=== PATIENT | female | born 2005 | race Caucasian/White ===

== ENCOUNTER 2025-01-29 19:12 | Emergency (ER) | payer MEDICAID ==
[~2025-01-29] VITALS: Ht 162.6 cm; Wt 95.5 kg
[2025-01-29 19:15] VITALS: TEMP 98.6
--- NOTE | 2025-01-29 20:06 | Physician Documentation ---
History of Present Illness ~ General Chief Complaint: General Stated Complaint: LUPUS FLARE UP Time Seen by MD: 20:05 Mode of Arrival: EMS History of Present Illness Initial Comments 19-year-old female with reported history of lupus who presents with a lupus flare and body aches She tells me that she has a history of lupus and sometimes has flares. She has been feeling ill over the past 1 week. She went to [facility], and was given an injection of steroids and Toradol. She then says that she got an infection at the injection site on her arm. She was started on Keflex and has been taking that and says that the arm looks better. Over, she states that overall she is doing worse. She reports having fevers and body aches. She reports congestion and a productive cough with yellow sputum. She feels short of breath and feels like her chest is rapidly. She reports pain in her right low back. She reports general fatigue. She tells me that in the past the only thing that seems to help or steroids. She is very sensitive to medications. Medication Reconciliation Allergies: Coded Allergies: Penicillins (Verified Allergy, Unknown, 06/24/24) >5 years, hives, unknown latex (Verified Allergy, Unknown, anaphylaxis, 06/24/24) Review of Systems Constitutional: Reports: fever, weakness ENT: Reports: throat pain Respiratory: Reports: cough, shortness of breath Physical Exam Physical Exam Vital Signs: Temperature: 98.6, Source: Oral, Heart Rate: 124, Respiratory Rate: 20, BP: 126/83, Pulse Oximetry: 99, Weight: 95.450 Physical Exam General: This is an anxious young female, appears in mild distress HEENT: Atraumatic, oropharynx appears dry Heart: Tachycardic, appears regular, normal-appearing peripheral perfusion Lungs: Clear breath sounds bilateral, no wheezing or consolidation, normal work of breathing, normal oxygen saturation on room air, occasional cough with yellow sputum Abdomen: Soft, nondistended, nontender all quadrants Back: Tender to palpation of the bilateral lower back muscles, right worse than left Neuro: Alert and oriented Psychiatric: Anxious, tearful, labile affect Progress Results/Orders Results/Orders Orders - CARTER RODRIGUEZ MD Covid19 Binax Poc Result Entry (01/29/25 20:18) Chest,Two Views (01/29/25 20:18) Completed Orders - CARTER RODRIGUEZ MD Cbc/Diff (01/29/25 20:18) CMP (01/29/25 20:18) Chest,Two Views (01/29/25 20:18) Normal Saline 1000ml (0.9% Sodium Chlori (01/29/25 20:20) Ketorolac Trometh 15mg/Ml Vial (Toradol (01/29/25 20:20) Dexamethasone Inj (Decadron 10mg/Ml Inj) (01/29/25 20:18) Ondansetron Inj. (Zofran 4mg/2ml Vial) (01/29/25 20:20) Medications Received in ER Medications (Trade) Dose Ordered Sig/Shyam Route PRN Reason Start Time Stop Time Status Last Admin Dose Admin Sodium Chloride 1,000 ml @ 1,000 mls/hr ONCE ONCE IV 01/29/25 20:20 01/29/25 21:19 DC 01/29/25 20:33 1,000 MLS/HR (Toradol injection) 15 mg ONCE ONCE IV 01/29/25 20:20 01/29/25 20:21 DC 01/29/25 20:33 15 MG (Decadron 10mg/ ml inj) 10 mg ONCE STAT IV 01/29/25 20:18 01/29/25 20:20 DC 01/29/25 20:32 10 MG (Zofran 4mg/2ml vial) 4 mg ONCE ONCE IV 01/29/25 20:20 01/29/25 20:21 DC 01/29/25 20:32 4 MG Vital Signs 01/29/25 01/29/25 01/29/25 01/29/25 19:15 19:22 20:33 22:33 Temp 98.6 Pulse 124 101 Resp 20 20 18 16 B/P (MAP) 126/83 122/59 (80) Pulse Ox 99 95 01/29/25 01/29/25 23:22 23:22 Pulse 113 Resp 18 B/P (MAP) 122/59 Pulse Ox 99 Laboratory Tests Test 01/29/25 21:03 01/29/25 21:32 White Blood Count 15.4 H Red Blood Count 5.00 Hemoglobin 16.1 H Hematocrit 46.9 H Mean Corpuscular Volume 93.8 Mean Corpuscular Hemoglobin 32.2 H Mean Corpuscular Hemoglobin Concent 34.4 Red Cell Distribution Width 12.9 Platelet Count 306 Mean Platelet Volume 8.6 Neutrophils (%) (Auto) 68.1 Lymphocytes (%) (Auto) 15.7 L Monocytes (%) (Auto) 14.3 H Eosinophils (%) (Auto) 1.7 Basophils (%) (Auto) 0.2 Neutrophils # (Auto) 10.5 H Lymphocytes # (Auto) 2.4 Monocytes # (Auto) 2.2 H Eosinophils # (Auto) 0.3 Basophils # (Auto) 0.0 CBC Comment Sodium Level 138 Potassium Level 3.9 Chloride Level 103 Carbon Dioxide Level 24.4 Anion Gap 11 Blood Urea Nitrogen 7 Creatinine 0.74 Estimated GFR/1.73 m2 > 90 BUN/Creatinine Ratio 9.5 L Glucose Level 92 Calcium Level 8.7 Total Bilirubin 0.4 Aspartate Amino Transf (AST/SGOT) 20 Alanine Aminotransferase (ALT/SGPT) 26 Alkaline Phosphatase 108 Total Protein 8.1 Albumin 3.6 Globulin 4.5 H Albumin/Globulin Ratio 0.8 L Chemistry Comments SARS-CoV-2 Antigen (Rapid) Negative EKG/XRAY/CT/US/VASC/MRI Chest X-Ray : Additional Comments I personally interpreted the x-ray, and it shows: No focal consolidation, pulmonary edema, or pneumothorax Medical Decision Making Additional information obtaine: old records Findings Reviewed past records in the chart, there was no significant information Differential Diagnosis Viral syndrome, bronchitis, COVID-19, pneumonia, dehydration, electrolyte derangement, lupus flare Assessment The patient presents with a constellation of symptoms that seem most consistent with a viral syndrome. She also reports a history of lupus in says that steroids generally help. She was given symptomatic treatment including IV fluids for hydration. Her workup is otherwise unremarkable. COVID swab negative. Chest x-ray without pneumonia. No dangerous dehydration or electrolyte derangement. On re-evaluation she did appear improved. Overall, this appears consistent with a viral syndrome. I doubt sepsis or other more dangerous process. She will be discharged home with ongoing outpatient management and symptomatic treatment. Departure Time of Disposition: 22:44 Disposition: HOME / SELF CARE / HOMELESS Impression: Primary Impression: Viral URI with cough Condition: Improved Referrals: NO PRIMARY CARE PROVIDER (PCP) Education Educated: Patient Educated regarding: diagnosis, treatment, need for follow up Signature Scribe Signature: jenni Attestation: CARTER Good MD Jan 29, 2025 20:06
[2025-01-29] MEDS: dexamethasone sod phosphate 10mg/ml inj IV STA (20:32)
[2025-01-29] MEDS: ondansetron/PF 4mg/2ml inj IV ONE (20:32)
[2025-01-29] MEDS: normal saline 1000ml 1,000 ML IV ONE (20:33)
[2025-01-29] MEDS: ketorolac trometh 15mg/ml vial 15 MG/ML ML IV ONE (20:33)
--- NOTE | 2025-01-29 20:53 | RADIOLOGY REPORT ---
DI CHEST,TWO VIEWS CLINICAL HISTORY: cough, chest pain COMPARISON: None TECHNIQUE: Frontal and lateral view of the chest was obtained FINDINGS: Lines and Tubes: None Lungs: No focal consolidation. Pleura: No effusion. No pneumothorax. Cardiomediastinal contours: Unremarkable Bones: No acute osseous abnormality. IMPRESSION: No acute cardiopulmonary disease.
[2025-01-29 21:35] LABS: MEAN PLATELET VOLUME 8.6 FL (7.4-10.4); RED CELL DISTRIBUTION WIDTH 12.9 % (11.5-14.5)
[2025-01-29 21:44] LABS: CREATININE 0.74 MG/DL (0.40-0.90); TOTAL CARBON DIOXIDE 24.4 MMOL/L (24-32); eCRCL 105 ML/MIN; eGFR > 90 ML/MIN
[2025-01-29 23:22] VITALS: BP 122/59; PULSE 113; RESP 18; O2SAT 99
== END 2025-01-29 23:50 | disposition home or self-care (01) ==
LOC: ER 19:13
DX: J06.9 Acute upper respiratory infection, unspecified (principal); B97.89 Other viral agents as the cause of diseases classified elsewhere; Z88.0 Allergy status to penicillin; Z91.040 Latex allergy status; Z20.822 Contact with and (suspected) exposure to COVID-19
CPT/HCPCS: 36415; 71046; 80053; 85025; 87811; 96361; 96374; 96375; 99284; J1100; J1885; J2405; J7030

== ENCOUNTER 2025-02-05 18:38 | Emergency (ER) | payer MEDICAID ==
[~2025-02-05] VITALS: Ht 162.6 cm; Wt 108.0 kg
[2025-02-05 18:41] VITALS: BP 169/91; PULSE 98; RESP 17; O2SAT 99
[2025-02-05] MEDS ORDERED: normal saline 1000ml 1,000 ML IV ONE (18:45)
--- NOTE | 2025-02-05 18:51 | Physician Documentation ---
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 Evidently patient was attending [facility], when she became feeling lightheaded. She was slowly lowered in the floor. She has a 1-2 minute episode of bilateral upper extremity shaking. Not clear if she lost consciousness at the time. Resolved spontaneously. There was no postictal period. No lateral tongue biting, no urinary incontinence. The patient was transported to our facility by EMS at the insistence of patient's partner. At the time of my examination patient states that he feels tired. She denies headache, chest pain, difficulty breathing, nausea, vomiting, diarrhea, abdominal pain. She denies any chance of being . Last period was two years ago when she has a control implanted. No concern for tobacco, alcohol or illicit substances use Medication Reconciliation Allergies: Coded Allergies: Penicillins (Verified Allergy, Unknown, 06/24/24) >5 years, hives, unknown latex (Verified Allergy, Unknown, anaphylaxis, 06/24/24) Review of Systems ROS 10 point review of systems was performed and unless noted above in HPI is negative for acute process/complaint. Physical Exam Physical Exam Physical Exam GENERAL: Awake, alert, oriented, GCS 15, no apparent distress, non-toxic appearing, answers questions, follows commands appropriately. Examined immediately upon arrival in bed 7. HEENT: Atraumatic, normocephalic, pupils equal, extraocular muscles intact, sclerae anicteric, mucus membranes moist, oropharynx is clear, no stridor. NECK: supple, full active range of motion, trachea midline, no thyromegaly, no lymphadenopathy, no JVD. CARDIOVASCULAR: regular rate/rhythm, no murmurs/gallops/rubs, Pulses are 2+ in all extremities and symmetric. Capillary refill less than 2 seconds. PULMONARY: Nonlabored, good air movement ,no respiratory distress, speaking in full sentences, clear to auscultation bilaterally, no wheezing, no ronchi, no rales, no accessory muscle use. GASTROINTESTINAL: Soft, non-tender, non-distended, normal active bowel sounds, no organomegaly, no pulsatile masses, no CVA tenderness. NEUROLOGIC: Lucid with normal mental status. Normal facial symmetry. Moves all extremities symmetrically and with purpose. No truncal ataxia. Speech is fluid without evidence of dysarthria or aphasia, no focal deficits appreciated. MUSCULOSKELETAL: There is full range of motion of all extremities. There is no joint pain or joint swelling or joint erythema. There is no muscle pain or tenderness or swelling. EXTREMITIES: warm, well-perfused, no cyanosis, no clubbing, no edema, no acute deformities. Skin: warm, dry, erythematous scaly rash on her face in non-malar distribution, no jaundice, no petechiae orpurpura. No ecchymosis. PSYCHIATRIC: Normal affect, normal insight, normal concentration. Focused exam: [] Medical Decision Making Additional information obtaine: old records, other (EMS) Findings Facility Status: ED Holds, RME process The plan was discussed with the patient, who demonstrates clear understanding of the plan and is in agreement with the plan unless otherwise noted in the chart. All questions have been answered, all concerns were addressed unless otherwise documented. I was available throughout their ED stay for frequent reassessment and quest ions. Differential Diagnoses (considered and possible or likely): [Differential diagn osis for this seizure while attending [facility] service includes but not limited to breakthrough seizure, pseudo-seizure, episode of being overcome with holy spirit , hypoglycemia, dehydration, electrolyte derangement. Less likely intracranial neoplasm. Her lightheadedness could be related to vasovagal event, less likely orthostatic event, unlikely to be malignant arrhythmia.] ??Differential Diagnoses (considered and unlikely, not requiring evaluation currently): [See above. No evidence of lateralizing sinuses suspect a stroke] MDM Data Please see HPI for the following: Independent Historians and external Records Review. Historian: [Patient] Independent Historians: ?[EMS, record review] Medication Management: [Reviewed medication list] Social History and determinants: [Reviewed] Please see the body of the note for the following: Any independent interpretations of ECG, imaging studies. All vitals signs/haemodynamics, ordered tests were independently reviewed and interpreted by myself. Nursing triage complaint and vitals reviewed, additional nursing notes were reviewed as available and I agree unless otherwise noted or documented in contradiction in the chart Vital Signs: Independently reviewed Labs: Independently interpreted Imaging: Independently interpreted Old Medical Records: Independently reviewed, see HPI for relevant summary and information Pulse Oximetry: [97%] interpreted as [normal on room air] by me [Heat Pump Installer: [Regular Rate, Regular rhythm, no ectopy, NSR] reviewed and interpreted by me] Additionally notably showing: [On presentation she is slightly tachycardic which had improved with the rest alone.] Tests considered but not ordered include: [Advanced imaging does not appear to be necessary she has a known prior history of seizures/functional neurologic disorder] Social Determinants of Health Impact: Patient was evaluated in [facility] [place] to [facility] due to below par ratio of patient to medical providers. [] Comorbid Conditions Impacting Present Evaluation and Care/Treatment: [Lupus] Management Discussions with other Healthcare Providers: [] Treatment and Disposition Medication Management (Given or considered): [Fluids]. See EMR for details Consideration for Hospitalization/Escalation/Deescalation of Care: Admission for observation has been considered, [however the patient is able to tolerate p.o., their symptoms are controlled, they are able to rely on oral medications, and their chief complaint/diagnosis can be managed on outpatient basis.] ?ED Course:?[I have ordered appropriate seizure workup for a breakthrough seizure evaluation, however the patient informed the nurse during triage that she does not want to be here, desires to leave. The patient will be leaving against medical advice] ?Shared decision making:?[] Code status:?FULL Please see the full Electronic Medical Record for full details of nursing documentation, medications list, other records of complete past medical history and conditions, vital signs, laboratory studies, and any radiologic study interp retations by radiologists. Portions of this note were completed using [employer] dictation software and as a result there may exist minor errors in spelling. I have reviewed elements of past family and social history and agree as included in note. Differential Diagnosis See body of main note for differential diagnosis Departure Disposition: LEFT AGAINST MEDICAL ADVICE Impression: Primary Impression: Seizure-like activity Additional Impression: Feeling tired Condition: Improved Referrals: NO PRIMARY CARE PROVIDER (PCP) Education Educated: Patient Educated regarding: diagnosis, treatment, prognosis, need for follow up Signature Scribe Signature: No scribe Attestation: Date: Feb 05, 2025 Time: 18:51 This note accurately reflects clinical decisions, work performed by myself, Grayson Miller, GRAYSON CARPENTER DO Feb 05, 2025 18:51
[2025-02-05 18:53] VITALS: TEMP 98.4
== END 2025-02-05 18:56 | disposition left against medical advice (07) ==
LOC: ER 18:38
DX: R56.9 Unspecified convulsions (principal); R53.83 Other fatigue; Z88.0 Allergy status to penicillin; Z91.040 Latex allergy status
CPT/HCPCS: 99283

== ENCOUNTER 2025-02-12 11:34 | Emergency (ER) | payer MEDICAID ==
[~2025-02-12] VITALS: Ht 162.6 cm; Wt 107.0 kg
[2025-02-12 11:43] VITALS: BP 102/60; PULSE 99; TEMP 98; O2SAT 97
--- NOTE | 2025-02-12 12:32 | Physician Documentation ---
History of Present Illness ~ Chief Complaint: Back Pain Stated Complaint: BACK PAIN/VOMITING Time Seen by MD: 11:48 OK to notify your PCP?: Yes Primary Medical Doctor: [facility] Source: patient Mode of Arrival: POV Exam Limitations: no limitations HPI Right flank pain which radiates down right leg. She reports she has a history of sciatica on this side and has been to physical therapy and had treatment for the past couple of years but this feels different. She reports that the pain as a tingling sensation down the leg denies any saddle anesthesia, loss of bowel or bladder. She reports also having some bladder fullness and pain. She reports that the pain is a sharp stabbing sensation in the flank and has caused her to feel nauseated and to vomit. The severe pain started last night. No known history of kidney stones. No known , she has the hormone implant. Medication Reconciliation Allergies: Coded Allergies: Penicillins (Verified Allergy, Unknown, 02/12/25) >5 years, hives, unknown latex (Verified Allergy, Unknown, anaphylaxis, 02/12/25) Past Medical History Other Past Medical History: Sciatica, lupus. Review of Systems All Other Systems at this time: Reviewed and Negative Physical Exam Physical Exam Vital Signs: RN Vital Signs have been reviewed: Yes, Temperature: 98.0, Source: Oral, Heart Rate: 99, Respiratory Rate: 22, BP: 102/60, Pulse Oximetry: 97, Weight: 107.000 Oxygen Flow Rate: 0 Pulse Oximetry Reflects: adequate oxygenation Physical Exam General: Alert, no apparent distress. HEENT: PERRL, EOMI, no injection, moist mucous membranes. Neck: Full range of motion. Respiratory: Lungs clear, no respiratory distress. Chest: No accessory muscle use. Cardiovascular: Regular rate and rhythm, no murmurs. Gastrointestinal: Soft, nontender, nondistended. Bowels sounds present. Extremities: Normal range of motion, no deformity. Back: No midline tenderness. Positive CVA tenderness on the right. Passive straight leg raise test positive on the right side. Neurologic: Oriented x4. Psychiatric: Normal mood and affect. Skin: Normal color, warm and dry. No edema, no ecchymosis. Progress Results/Orders Reviewed/noted all lab results: Yes Results/Orders Completed Orders - FATOU FOX ADULT EDUCATOR Hcg, Ur Ql (02/12/25 12:24) Ketorolac Trometh 15mg/Ml Vial (Toradol (02/12/25 12:30) Ua W/Microscopic, Cult If Ind (02/12/25 12:36) Medications Received in ER Medications (Trade) Dose Ordered Sig/Shyam Route PRN Reason Start Time Stop Time Status Last Admin Dose Admin (Toradol injection) 15 mg ONCE ONCE IM 02/12/25 12:30 02/12/25 12:31 DC 02/12/25 13:05 15 MG Vital Signs 02/12/25 02/12/25 11:43 13:05 Temp 98.0 Pulse 99 Resp 22 18 B/P (MAP) 102/60 Pulse Ox 97 O2 Flow Rate 0 Laboratory Tests Test 02/12/25 12:36 Urine Specimen Description Cln catch midstream Urine Color Yellow Urine Clarity Slightly cloudy Urine pH 7.5 Urine Specific [place] 1.015 Urine Protein Negative Urine Glucose (UA) Negative Urine Ketones Negative Urine Occult Blood Negative Urine Nitrite Negative Urine Bilirubin Negative Urine Urobilinogen 0.2 Urine Leukocyte Esterase Negative Urine RBC 0-2 Urine WBC 0-4 Urine Squamous Epithelial Cells Many Urine Bacteria Few Urine Mucus None seen Urine Culture Indicated Not ind Volume Urine Centrifuged 10 ml Urine HCG, Qualitative Negative Urine Comment Medical Decision Making Additional information obtaine: family Findings Physical exam shows right CVA tenderness, and straight leg raise positive. Rest of exam is unremarkable. History of sciatica for years. Ordered a UA and HCG to rule out possible kidney stones or UTI as well as Toradol for pain. HCG was negative and urinalysis was negative for UTI or blood. She is requesting talked to physician in charge. I notified Dr. Marcano of request. Dr. Marcano talked to patient and spoke about plan. Differential Dx:Considerations: , Ectopic , Pancreatitis, Pyelonephritis, Strain, Urinary obstruction, Urolithiasis, Renal infarction, Urinary tract infection, Other () Differential Diagnosis Cauda equina syndrome. Departure Disposition: HOME / SELF CARE / HOMELESS Impression: Primary Impression: Sciatica Additional Impression: Low back pain Condition: Stable Discharge Instructions: Sciatica, Acute Back Pain, Adult Additional Instructions: Her urinalysis was negative for UTI or blood in the urine. Please follow up with your primary care provider within the next week and return back here for any new or worsening symptoms. Referrals: NO PRIMARY CARE PROVIDER (PCP) Education Educated: Patient, Family Educated regarding: diagnosis, treatment, prognosis, need for follow up Additional Comment Medical Screen Exam This patient recieved a medical screening examination. After reviewing the individual's medical complaints with presenting symptoms and performing an appropriate physical examination, it was determined that no immediate life- threatening emergency medical condition is present. This individual is also not a women having contractions. Signature Scribe Signature: . Attestation: Scribed for Fatou Foxp by Fatou Markham NP . 02/12/25 13:33 Parts of this note were created using [employer] voice recognition software program. While efforts were made to correct any mistakes made by this voice recognition software program, nonsensical phrases may remain in this note. In addition, there may be errors and syntax, grammar, content and spelling. FATOU FOXP Feb 12, 2025 12:32
[2025-02-12 12:49] LABS: LEUKOCYTE ESTERASE ,URINE NEGATIVE (Neg); NITRITES, URINE NEGATIVE (Neg); OCCULT BLOOD,URINE NEGATIVE (Neg)
[2025-02-12 12:51] LABS: URINE HCG NEGATIVE (NEG)
[2025-02-12 12:55] LABS: UA COLLECTION TYPE CLN CATCH MIDSTREAM
[2025-02-12 12:56] LABS: MUCUS STRANDS NONE SEEN /LPF (Neg); SQUAMOUS EPITHELIAL CELL,UR MANY /LPF (FEW)
[2025-02-12 13:05] VITALS: RESP 18
[2025-02-12] MEDS: ketorolac trometh 15mg/ml vial 15 MG/ML ML IM ONE (13:05)
== END 2025-02-12 13:51 | disposition home or self-care (01) ==
LOC: ER 11:34
DX: M54.31 Sciatica, right side (principal); Z88.0 Allergy status to penicillin; Z91.040 Latex allergy status
CPT/HCPCS: 81001; 81025; 96372; 99283; J1885

== ENCOUNTER 2025-03-13 00:42 | Emergency (ER) | payer MEDICAID ==
[~2025-03-13] VITALS: Ht 162.6 cm; Wt 95.5 kg
[2025-03-13 02:08] LABS: MEAN PLATELET VOLUME 8.8 FL (7.4-10.4); RED CELL DISTRIBUTION WIDTH 13.1 % (11.5-14.5)
[2025-03-13 02:24] LABS: CREATININE 0.88 MG/DL (0.40-0.90); TOTAL CARBON DIOXIDE 22.1 MMOL/L (24-32); eCRCL 88 ML/MIN; eGFR 82 ML/MIN
[2025-03-13 03:11] LABS: URINE HCG NEGATIVE (NEG)
[2025-03-13 03:18] LABS: LEUKOCYTE ESTERASE ,URINE NEGATIVE (Neg); NITRITES, URINE NEGATIVE (Neg); OCCULT BLOOD,URINE NEGATIVE (Neg)
[2025-03-13 03:22] LABS: UA COLLECTION TYPE NON-SPECIFIED
[2025-03-13 06:01] VITALS: TEMP 97.5
--- NOTE | 2025-03-13 07:17 | Physician Documentation ---
History of Present Illness Chief Complaint: Abdominal Pain Stated Complaint: ABD PAIN Time Seen by MD: 06:44 Primary Medical Doctor: [facility] Mode of Arrival: POV HPI 19-year-old female presenting with abdominal pain. Pain started around midnight last night and has been ongoing for the past 7 hours. States that it is located in her right upper area and does not radiate. Additionally she has had nausea and several episodes of nonbloody emesis. She denies any chest pain, shortness of breath, fever, chills or any other associated symptoms. She reports that she was recently diagnosed with lupus about a month ago but has not been on any medications as of yet. Medication Reconciliation Allergies: Coded Allergies: Penicillins (Verified Allergy, Unknown, 02/12/25) >5 years, hives, unknown latex (Verified Allergy, Unknown, anaphylaxis, 02/12/25) Past Medical History Smoking Status: Former smoker Review of Systems All Other Systems at this time: Reviewed and Negative Physical Exam Vital Signs: Temperature: 97.5, Source: Oral, Heart Rate: 89, Respiratory Rate: 14, BP: 123/77, Pulse Oximetry: 99, Weight: 95.450 Oxygen Flow Rate: 0 Physical Exam I have reviewed the triage vitals. CONST: Well developed and well nourished. In no acute distress HENT: Head Atraumatic EYES: Pupils are equal, round and reactive to light. Normal conjunctiva NECK: Normal range of motion. Supple. CARDIO: Normal rate and regular rhythm. No murmurs, rubs, or gallops. S1, S2. PULM/CHEST: No respiratory distress. Lungs clear to auscultation. No wheeze ABD: Soft, tenderness to palpation in the right upper quadrant. Nondistended. Bowel sounds normal. No guarding. : Exam deferred MSK: No edema. No deformity. NEURO: Alert and oriented to person, place and time. Moving all extremities SKIN: Warm and dry. PSYCH: Normal mood and affect. Good eye contact. Progress Results/Orders Results/Orders Orders - ARVIND MCCLELLAND MD Ct Abdomen Pelvis (03/13/25 ) Normal Saline 1,000ml Iv Bolus (03/13/25 07:15) Vital Signs 03/13/25 03/13/25 03/13/25 03/13/25 01:08 03:24 03:25 06:01 Temp 97.5 97.5 97.5 Pulse 84 76 89 Resp 18 18 18 14 B/P (MAP) 129/63 110/68 (82) 123/77 (92) Pulse Ox 99 100 99 O2 Flow Rate 0 0 0 Laboratory Tests Test 03/13/25 01:37 03/13/25 02:55 White Blood Count 10.8 Red Blood Count 4.88 Hemoglobin 15.5 Hematocrit 46.1 H Mean Corpuscular Volume 94.6 Mean Corpuscular Hemoglobin 31.8 H Mean Corpuscular Hemoglobin Concent 33.6 Red Cell Distribution Width 13.1 Platelet Count 266 Mean Platelet Volume 8.8 Neutrophils (%) (Auto) 65.8 Lymphocytes (%) (Auto) 22.5 Monocytes (%) (Auto) 10.2 Eosinophils (%) (Auto) 1.2 Basophils (%) (Auto) 0.3 Neutrophils # (Auto) 7.1 Lymphocytes # (Auto) 2.4 Monocytes # (Auto) 1.1 H Eosinophils # (Auto) 0.1 Basophils # (Auto) 0.0 CBC Comment Sodium Level 142 Potassium Level 3.8 Chloride Level 107 Carbon Dioxide Level 22.1 L Anion Gap 13 Blood Urea Nitrogen 16 Creatinine 0.88 Estimated GFR/1.73 m2 82 BUN/Creatinine Ratio 18.2 Glucose Level 95 Calcium Level 9.3 Total Bilirubin 0.5 Aspartate Amino Transf (AST/SGOT) 24 Alanine Aminotransferase (ALT/SGPT) 21 Alkaline Phosphatase 106 Total Protein 8.2 Albumin 4.0 Globulin 4.2 Albumin/Globulin Ratio 1.0 L Lipase 26 Chemistry Comments Urine Specimen Description Non-specified Urine Color Yellow Urine Clarity Clear Urine pH 6.5 Urine Specific [place] 1.025 Urine Protein Negative Urine Glucose (UA) Negative Urine Ketones Negative Urine Occult Blood Negative Urine Nitrite Negative Urine Bilirubin Negative Urine Urobilinogen 0.2 Urine Leukocyte Esterase Negative Urine Culture Indicated Not ind Volume Urine Centrifuged 10 ml Urine HCG, Qualitative Negative Urine Comment EKG/XRAY/CT/US/VASC/MRI CT : Impression EXAM: CT CT ABDOMEN PELVIS W/ IV CONTRAST History: RUQ abd pain Comparison Study: None TECHNIQUE: Multidetector spiral CT of the abdomen and pelvis was performed from lung bases to pubic symphysis. Initial imaging was done without IV contrast, followed by post contrast images of the abdomen and pelvis. Intravenous contrast was administered during this examination. Portal venous imaging was obtained. Axial, coronal and sagittal multiplanar reformats were performed by the technologist on a separate workstation. Radiation Dose : CT Dose: CTDI volume is 34 mGy. Dose-length product is 1720 mGy*cm FINDINGS: Lung Bases: No acute or significant lung base finding. Normal heart size. No pleural or pericardial effusion. Liver: The liver is normal in size. No focal lesions. Normal hepatic vascular enhancement. Diffuse steatosis. Gallbladder and Biliary Tree: Unremarkable Spleen: Unremarkable Pancreas: The pancreas is normal in appearance without focal lesions or abnormal enhancement. Adrenal Glands: Unremarkable Kidneys: Kidneys demonstrate normal symmetric enhancement without focal lesions, calculi or hydronephrosis. Bladder: Unremarkable Bowel: The stomach is grossly normal in appearance. Small bowel and colon are normal in caliber and distribution. Normal appendix is visualized in the right lower quadrant without findings of appendicitis. Ascites: Absent Lymphadenopathy: No mesenteric, retroperitoneal or periportal lymphadenopathy. Abdominal Wall and Mesentery: Unremarkable. Vasculature: The visualized abdominal aorta is normal in size and caliber. Abdominal and pelvic vessels demonstrate normal enhancement. Pelvic Organs: Unremarkable Musculoskeletal: No aggressive focal bony lesions, acute fractures or dislocation. IMPRESSION: 1. No acute abdominal or pelvic finding. 2. Hepatic steatosis. Radiation optimization: All CT scans at this facility use at least one of these dose optimization techniques: automated exposure control mA and/or kV adjustment per patient size (includes targeted exams where dose is matched to clinical indication) or iterative reconstruction. Medical Decision Making Additional information obtaine: N/A Findings 1 Differential Dx:Considerations: Appendicitis, Bowel obstruction, Constipation, Esophagitis, Gastritis/PUD, Gastroenteritis, Hepatitis, Ischemic bowel, Pancreatitis, Urinary tract infection Additional Comments This is a 19-year-old female presenting with abdominal pain. Differential diagnosis as above. Labs and imaging was ordered. Lab workup is grossly unremarkable. CT of the abdomen and pelvis showing no acute abnormalities aside from some mild hepatic steatosis. Patient was monitored in the ED in gradually improved on her own without medication. At this point in time we do not have a specific diagnosis but we have ruled out any acute emergent pathology. It is possible that the patient is likely having some gastritis type of symptoms and I advised her on some [id number] and antacids that she can take. She does have a history of lupus that was newly diagnosed and she has changed her diet to an anti-inflammatory diet. I advised her to continue with this. She also has rheumatology follow up in the next couple of months and advised her to keep this. The patient's vital signs are normal. On reassessment she is doing well. Exam is benign. She is stable and safe for discharge home. I considered all chronic medical conditions as well as social determinants of health. Advised to follow up with PCP in the next 2-5 days. Return to the ED with any acutely w orsening symptoms. Departure Disposition: HOME / SELF CARE / HOMELESS Impression: Primary Impression: Nonspecific abdominal pain Condition: Improved Discharge Instructions: Abdominal Pain (Nonspecific) Additional Instructions: Please monitor her symptoms for resolution. Continue with her anti-inflammatory diet. Please keep your appointment with rheumatology. Follow up with primary care physician in the next 2-5 days. Return to the ED with any acutely worsening symptoms. Referrals: NO PRIMARY CARE PROVIDER (PCP) Signature Scribe Signature: 1 Attestation: The note accurately reflects work and decisions made by me.Arvind Markham MD 03/13/25 10:05 ARVIND MCCLELLAND MD Mar 13, 2025 07:17
[2025-03-13] MEDS ORDERED: iohexol 300mg/ml 100ml inj. ONE (07:20)
[2025-03-13] MEDS: normal saline 1000ml 1,000 ML IV ONE (08:57)
--- NOTE | 2025-03-13 09:52 | RADIOLOGY REPORT ---
EXAM: CT CT ABDOMEN PELVIS W/ IV CONTRAST History: RUQ abd pain Comparison Study: None TECHNIQUE: Multidetector spiral CT of the abdomen and pelvis was performed from lung bases to pubic symphysis. Initial imaging was done without IV contrast, followed by post contrast images of the abdomen and pelvis. Intravenous contrast was administered during this examination. Portal venous imaging was obtained. Axial, coronal and sagittal multiplanar reformats were performed by the technologist on a separate workstation. Radiation Dose : CT Dose: CTDI volume is 34 mGy. Dose-length product is 1720 mGy*cm FINDINGS: Lung Bases: No acute or significant lung base finding. Normal heart size. No pleural or pericardial effusion. Liver: The liver is normal in size. No focal lesions. Normal hepatic vascular enhancement. Diffuse steatosis. Gallbladder and Biliary Tree: Unremarkable Spleen: Unremarkable Pancreas: The pancreas is normal in appearance without focal lesions or abnormal enhancement. Adrenal Glands: Unremarkable Kidneys: Kidneys demonstrate normal symmetric enhancement without focal lesions, calculi or hydronephrosis. Bladder: Unremarkable Bowel: The stomach is grossly normal in appearance. Small bowel and colon are normal in caliber and distribution. Normal appendix is visualized in the right lower quadrant without findings of appendicitis. Ascites: Absent Lymphadenopathy: No mesenteric, retroperitoneal or periportal lymphadenopathy. Abdominal Wall and Mesentery: Unremarkable. Vasculature: The visualized abdominal aorta is normal in size and caliber. Abdominal and pelvic vessels demonstrate normal enhancement. Pelvic Organs: Unremarkable Musculoskeletal: No aggressive focal bony lesions, acute fractures or dislocation. IMPRESSION: 1. No acute abdominal or pelvic finding. 2. Hepatic steatosis. Radiation optimization: All CT scans at this facility use at least one of these dose optimization techniques: automated exposure control mA and/or kV adjustment per patient size (includes targeted exams where dose is matched to clinical indication) or iterative reconstruction.
[2025-03-13 10:07] VITALS: BP 113/65; PULSE 92; RESP 12; O2SAT 98
== END 2025-03-13 10:20 | disposition home or self-care (01) ==
LOC: ER 00:42
DX: R10.11 Right upper quadrant pain (principal); Z88.0 Allergy status to penicillin; Z91.040 Latex allergy status
CPT/HCPCS: 36415; 74177; 80053; 81003; 81025; 82948; 83690; 85025; 96360; 99285; J7030; Q9967